=== PATIENT | male | born 1995 ===

== ENCOUNTER → 2020-05-07 | Outpatient (REF) | payer OTHER ==
[2020-05-07 12:15] LABS: SEMEN APPEARANCE OPAQUE (OPAQUE); SEMEN VISCOSITY VISCOUS (LIQUID); SEMEN VOLUME 4.7 ml (2.0-5.0); SEMEN pH 8.5 (7.0-8.0)
[2020-05-07 12:16] LABS: SPERM CONCENTRATION 23.3 M/ml (>=15.0); WBC CONCENTRATION >1 M/ml (<=1 M/ml)
== END ==
LOC: M LAB REF 12:12
DX: N46.8 Other male infertility (principal)